=== PATIENT | female | born 1935 | race Caucasian/White ===

== ENCOUNTER 2017-06-05 08:45 | Outpatient (CLI) | payer MEDICARE ==
--- NOTE | 2017-06-05 13:47 | CT ---
CHEST AND ABDOMEN AND PELVIS CT WITH CONTRAST: Date: 06/05/17 COMPARISON: 11/25/16. 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 Patient is undergoing chemotherapy. Previous radiation ther apy. TECHNIQUE: Chest, abdomen, and pelvis CT are performed with IV contrast. Enteric contrast was also administered. Coronal reformatted images submitted for interpretation. FINDINGS: CHEST CT: No mediastinal mass, lymphadenopathy, or hematoma. Heart size is within normal limits. No significant pericardial fluid. Thoracic and abdominal aorta demonstrate atherosclerosis. No aneurysm, dissection , or periaortic fat stranding. Large hiatal hernia is identified. Trachea and central bronchi are patent. There are chronic changes throughout the lung parenchyma. No consolidation, pleural effusion, or pneu mothorax. Stable spiculated nodule in the right lower lobe measuring 1.3 cm (previously measuring 1. 4 cm). [address]: Dilatation of the intra and extrahepatic biliary system due to a surgically absent gallbladder. Liver , spleen, pancreas, and adrenal glands have appropriate enhancement. No gastrohepatic, retrocrural, or periportal lymphadenopathy. There is an enlarged right anterior lymph node measuring 1.1 cm. This lymph node is unchanged from t he previous examination. Additional mesenteric lymph nodes are not appreciated. No evidence of bowel obstruction. Extensive diverticulosis in the sigmoid colon with stable mucosal thickening. No active inflammation. Symmetric enhancement of the kidneys. No obstructive uropathy. Stable hypodensity in the left renal c ortex. Nonobstructing calcifications in the left renal pelvis. PELVIC CT: No mass, lymphadenopathy, free air, or free fluid, Urinary bladder is unremarkable. No lytic or blastic lesions in the osseous structures. IMPRESSION: 1. Stable hiatal hernia. 2. Stable spiculated nodule in the right lower lobe. 3. Stable right anterior mesenteric mass, at the level of the transverse mesocolon. POS: [facility]
[2017-06-05] MEDS ORDERED: Iopamidol 370 76% 100 ML VIAL ONE (14:25)
== END 2017-06-05 08:46 | disposition home or self-care (01) ==
LOC: CT 08:45
PROVIDERS: ATTEND Internal Medicine Medical Oncology
DX: C83.83 Other non-follicular lymphoma, intra-abdominal lymph nodes (principal); K44.9 Diaphragmatic hernia without obstruction or gangrene; R91.8 Other nonspecific abnormal finding of lung field
CPT/HCPCS: 71260; 74177

== ENCOUNTER 2017-07-17 12:50 | Day surgery (SDC) | payer MEDICARE ==
[2017-07-16 17:02] VITALS: BMI 19.5
[2017-07-17] MEDS ORDERED: Lidocaine 1% PF 5 ML VIAL ONE (15:05)
[2017-07-17] MEDS ORDERED: PROPOFOL 200 MG/20 ML VIAL ONE (15:05)
--- NOTE | 2017-07-17 20:02 | OP ---
DATE OF PROCEDURE: 07/17/2017 PROCEDURE: Colonoscopy with biopsy. SURGEON: Alon Gregg M.D. ANESTHESIA: Pain medications given by Anesthesiology Department. PREOPERATIVE DIAGNOSIS: Severe diarrhea, negative stool studies. POSTOPERATIVE DIAGNOSES: 1. Extensive sigmoid diverticulosis with luminal narrowing. 2. Otherwise normal colon exam. PROCEDURE IN DETAIL: A written consent was obtained prior to procedure. After adequate sedation, re ctal exam performed was normal. Endoscope was advanced to the cecum. The quality of the bowel prep was adequate. There are numerous diverticula in the sigmoid colon with luminal narrowing and severe constriction. The mucosa throughout the colon appeared normal. There was no lesion, no polyps seen. Random biopsies were obtained from the ascending, transverse, and sigmoid colon to evaluate for zuleyka roscopic colitis. The rectal vault appeared normal including retroflexion. The patient tolerated th e procedure well. ASSESSMENT: 1. Sigmoid diverticulosis with severe luminal constriction. 2. Otherwise normal colon exam. PLAN: 1. Await biopsy to evaluate for microscopic colitis. 2. Lomotil p.r.n., in the meantime.
== END 2017-07-17 16:30 | disposition home or self-care (01) ==
LOC: SDC 12:50
PROVIDERS: ATTEND Internal Medicine Gastroenterology
PROC: 0DBK8ZX Excision of Ascending Colon, Via Natural or Artificial Opening Endoscopic, Diagnostic (ICD-10-PCS; principal; 2017-07-17)
PROC: 0DBL8ZX Excision of Transverse Colon, Via Natural or Artificial Opening Endoscopic, Diagnostic (ICD-10-PCS; 2017-07-17)
PROC: 0DBN8ZX Excision of Sigmoid Colon, Via Natural or Artificial Opening Endoscopic, Diagnostic (ICD-10-PCS; 2017-07-17)
DX: K52.89 Other specified noninfective gastroenteritis and colitis (principal); K57.30 Diverticulosis of large intestine without perforation or abscess without bleeding; K21.9 Gastro-esophageal reflux disease without esophagitis; C88.4 Extranodal marginal zone B-cell lymphoma of mucosa-associated lymphoid tissue [MALT-lymphoma]; C85.90 Non-Hodgkin lymphoma, unspecified, unspecified site; M19.90 Unspecified osteoarthritis, unspecified site; I25.10 Atherosclerotic heart disease of native coronary artery without angina pectoris; Z87.891 Personal history of nicotine dependence
CPT/HCPCS: 88305; J2001; J2704

== ENCOUNTER 2017-07-20 00:14 | Emergency (ER) | payer MEDICARE ==
[2017-07-20 01:47] LABS: ALT (SGPT) 23 U/L (8-55); AST (SGOT) 32 U/L (5-34); Albumin 3.7 g/dL (3.4-4.8); Alkaline Phosphatase 212 U/L (40-150); Anion Gap 14 mmol/L (10-20); BUN (Urea Nitrogen) 14 mg/dL (9.8-20.1); Bilirubin, Total 0.3 mg/dL (0.2-1.2); Calc. Creatinine Clearance 0 mL/min (70-130); Calcium 8.5 mg/dL (7.8-10.44); Carbon Dioxide 26 mmol/L (23-31); Chloride 105 mmol/L (98-107); Estimated GFR-MDRD 79; Globulin 3.2 g/dL (2.4-3.5); Glucose 110 mg/dL (83-110); Potassium 3.3 mmol/L (3.5-5.1); Protein, Total 6.9 g/dL (6.0-8.3); Sodium 142 mmol/L (136-145)
[2017-07-20 02:02] LABS: Band 4 % (5-11); Eosinophils 2 % (0-10); Hemoglobin 12.3 g/dL (12.0-16.0); Lymphocytes 33 % (21-51); MDiff Complete? YES; Mean Corpuscular HGB CONC 31.5 g/dL (32.0-36.0); Mean Corpuscular Hemoglobin 32.4 pg (27.0-31.0); Mean Platelet Volume 8.3 fL (7.4-10.4); Monocytes 14 % (0-10); Neutrophil 46 % (42-75); PLT Morphology Comment PLT clumps seen-ADEQ; Platelet Clumps MARKED; RBC Distribution Width 13.7 % (11.5-14.5); White Blood Cell (WBC) Count 3.1 thou/uL (4.8-10.8)
[2017-07-20 02:24] LABS: Bilirubin Negative (Negative); Blood, Urine Negative (Negative); Clarity CLEAR (Clear); Glucose, Urine (Dipstick) Negative (Negative); Leukocyte Small (Negative); Nitrite Negative (Negative); Protein, Urine (Dipstick) Negative (Neg-Trace); Specific Gravity, Urine 1.014 (1.002-1.036); Urobilinogen 0.2 mg/dL (0.2-1.0); pH, Urine 6.5 (5.0-9.0)
[2017-07-20 02:25] LABS: Bacteria/HPF Rare-Few HPF (None Seen); Hyaline Casts/LPF 0-3 HYALINE CAST LPF (0-3 Hyaline)
[2017-07-20] MEDS ORDERED: Potassium Chloride 20 MEQ TAB ONE (02:33)
== END 2017-07-20 03:15 | disposition home or self-care (01) ==
LOC: ERS 00:14
DX: R19.7 Diarrhea, unspecified (principal); I10 Essential (primary) hypertension; Z87.891 Personal history of nicotine dependence
CPT/HCPCS: 36415; 80053; 81003; 81015; 82550; 83605; 85025; 87086; 96360

== ENCOUNTER 2017-12-08 09:26 | Outpatient (CLI) | payer MEDICARE ==
[2017-12-08 10:51] LABS: Estimated GFR-MDRD - POC Greater than 90
--- NOTE | 2017-12-08 11:30 | CT ---
CHEST AND ABDOMEN AND PELVIS CT WITH CONTRAST: HISTORY: Right lower lobe lung mass. COMPARISON: 06/05/2017 and 11/25/2016 TECHNIQUE: A chest, abdomen, and pelvis CT is performed with IV contrast. Coronal reformatted images are submit venus for interpretation. FINDINGS: CHEST: No mediastinal mass, lymphadenopathy, or hematoma. Heart size is within normal limits. No p ericardial effusion. The thoracic aorta and abdominal aorta have an overall normal caliber. There i s atherosclerosis. No periaortic fat stranding or dissection. A hiatal hernia is again noted and unchanged. The majority of the stomach is in the posterior medias tinum. The trachea and central bronchi are patent. Minimal scar and atelectasis in the lingula. Minimal at electasis in the right lower lobe. There is an essentially stable, irregularly marginated mass in th e right lower lobe, adjacent to multiple pulmonary vessels, measuring 0.8 x 1.1 cm (previously report ed to be 1.3 cm). The middle lobe and upper lobe are unremarkable. No significant pleural fluid or pneumothorax. ABDOMEN: Dilatation of the biliary system due to reservoir effect from previous cholecystectomy. Th e spleen, pancreas, adrenal glands, and liver have appropriate enhancement. Symmetric enhancement of the kidneys. Bilaterally, no obstructive uropathy. No gastrohepatic, retrocrural, or periportal ly mphadenopathy. There is a stable mass in the anterior right mediastinum, currently measuring 1.1 x 1 .1 cm (previously measuring 1.4 x 1.1 cm). There is no free air, or free fluid. Multiple normal curtis iber small bowel loops. Normal ileocecal junction. Normal appearing colon. Scattered fecal materia l in a nondistended, nondilated colon. Diverticulosis in the sigmoid. No diverticulitis. PELVIS: No mass, lymphadenopathy, free air, or free fluid. Surgically absent uterus. There are no lytic or blastic lesions in the osseous structures. IMPRESSION: 1. Stable hiatal hernia. 2. Stable spiculated nodule in the right lower lobe. 3. Stable anterior right mesenteric mass at the level of the transverse mesocolon. POS: [facility]
[2017-12-08] MEDS ORDERED: Iopamidol 370 76% 100 ML VIAL ONE (14:44)
== END 2017-12-08 09:27 | disposition home or self-care (01) ==
LOC: CT 09:26
PROVIDERS: ATTEND Internal Medicine Medical Oncology
DX: C83.89 Other non-follicular lymphoma, extranodal and solid organ sites (principal); R91.8 Other nonspecific abnormal finding of lung field; R91.1 Solitary pulmonary nodule; K44.9 Diaphragmatic hernia without obstruction or gangrene; R19.09 Other intra-abdominal and pelvic swelling, mass and lump
CPT/HCPCS: 71260; 74177; 82565

== ENCOUNTER 2018-04-02 09:22 | Outpatient (CLI) | payer MEDICARE | END 2018-04-02 09:23 | disposition home or self-care (01) | LOC: EDSTATUS 10:00 | PROVIDERS: ATTEND Internal Medicine Medical Oncology | DX: R63.3 Feeding difficulties (principal); R13.10 Dysphagia, unspecified; C88.4 Extranodal marginal zone B-cell lymphoma of mucosa-associated lymphoid tissue [MALT-lymphoma] | CPT/HCPCS: 74230; G8996-GN-CJ; G8997-GN-CI ==

== ENCOUNTER 2018-05-25 09:09 | Outpatient (CLI) | payer MEDICARE ==
[2018-05-25] MEDS ORDERED: Iopamidol 370 76% 100 ML VIAL ONE (09:56)
--- NOTE | 2018-05-25 12:01 | CT ---
CT CHEST WITH CONTRAST: CT ABDOMEN WITH CONTRAST: CT PELVIS WITH CONTRAST: HISTORY: C83.83, marginal zone lymphoma. COMPARISON: CT chest, abdomen, and pelvis from 12/08/2017. FINDINGS: There is a large sliding hiatal hernia, proximally, through the extent of the gastric volume in the t horax, similar. Mild emphysematous lung changes, central and lobular in nature. Slight interval size decrease, spiculated nodule, right lower lobe, measuring up to 7 mm, previously up to 10 mm. No new suspicious pulmonary nodule. No pleural effusion. No pericardial effusion. Atrophy, left lobe of thyroid, versus prior surgical change. Proximal small bowel mesenteric lymph node measures up to 8 mm in size, previously 11 mm. Cholecystectomy change. Mild reservoir effect of the intrahepatic and extrahepatic biliary system, c hronic, without change. Moderate diverticular disease of the sigmoid colon, without active current i nflammation. No dilated loops of large or small bowel. No retroperitoneal adenopathy. No hydronephrosis. Small, sub-5 mm renal hypodensities are similar. No suspicious osteolytic or osteoblastic lesions. No displaced rib fracture. IMPRESSION: 1. Interval size decrease of the right lower lobe pulmonary nodule, as well as the proximal mesenter ic lymph node, with size as above, indicating a partial treatment response. 2. No evidence for disease progression. No new foci of adenopathy or pulmonary nodules. POS: [facility]
== END 2018-05-25 09:10 | disposition home or self-care (01) ==
LOC: CT 09:09
PROVIDERS: ATTEND Internal Medicine Medical Oncology
DX: C83.00 Small cell B-cell lymphoma, unspecified site (principal); R91.1 Solitary pulmonary nodule; K63.9 Disease of intestine, unspecified
CPT/HCPCS: 71260; 74177; 82565; Q9967

== ENCOUNTER 2018-10-06 12:24 | Outpatient (CLI) | payer MEDICARE ==
--- NOTE | 2018-10-07 11:00 | PET ---
Nuclear medicine FDG PET/CT: (Positron emission tomography and computed tomography) DATE: 10/07/2018 HISTORY: 83-year-old female with marginal zone lymphoma. Follow-up. COMPARISON: 03/04/2016PET/CT and 05/25/2018 CT TECHNIQUE: IV injection of F-18 fluorodeoxyglucose (FDG) dose: 11.2 mCi. PET scan and attenuation correction CT performed from skull base to proximal thighs. FINDINGS: SUV (standard uptake values) numbers given are maximum SUVs. QCLR used. The hypermetabolic right lower lobe pulmonary nodule demonstrated on 03/04/2016, is smaller than it w as before, and is currently not hypermetabolic, SUV 0.7. It is unchanged compared to 05/25/2018 CT. The lungs are otherwise grossly clear now. No hypermetabolic mediastinal, hilar, axillary, or subpectoral, lymph nodes, with interval resolution of the hypermetabolic bilateral axillary and subpectoral lymph nodes of 03/04/2016. Currently no hypermetabolic suspicious activity in the chest. Previously, at the C1-2 level, right longus colli/longus capitis muscle had hypermetabolic activity o f 3.5.. It currently has SUV of 2.9. This is probably muscle contraction activity rather than hypermetabolic retropharyngeal lymph node. Otherwise, no abnormal, suspicious hypermetabolic activity in the neck. Herniation of greater than half of the stomach into the thoracic cavity again noted. No suspicious hypermetabolic activity in the pancreas, adrenals, liver, spleen, retroperitoneal lymph nodes, or any mesenteric mass. No hypermetabolic activity in any iliac chain lymph nodes or inguinal lymph nodes. The previously hyp ermetabolic left inguinal lymph nodes of 03/04/2016, have resolved. IMPRESSION: 1) no evidence of malignant hypermetabolic activity anywhere. 2) large paraesophageal hiatal hernia. 3) small right lower lobe pulmonary nodule is currently not hypermetabolic, smaller than in 6, and stable since 05/25/2018.
== END 2018-10-06 12:25 | disposition home or self-care (01) ==
LOC: PET 12:24
PROVIDERS: ATTEND Internal Medicine Medical Oncology
DX: C88.4 Extranodal marginal zone B-cell lymphoma of mucosa-associated lymphoid tissue [MALT-lymphoma] (principal); K44.9 Diaphragmatic hernia without obstruction or gangrene; R91.1 Solitary pulmonary nodule
CPT/HCPCS: 78815; A9552

== ENCOUNTER 2019-01-03 08:20 | Outpatient (CLI) | payer MEDICARE ==
--- NOTE | 2019-01-03 11:39 | BD ---
DEXA BONE DENSITY STUDY Date: 01/03/19 HISTORY: Osteoporosis screening. FINDINGS: Lumbar Spine: BMD (g/cm2) L1 0.868 T-Score: -1.1 Z-Score: 1.3 L2 0.861 T-Score: -1.5 Z-Score: 1.2 L3 0.863 T-Score: -2.0 Z-Score: 0.9 L4 0.818 T-Score: -2.2 Z-Score: 0.8 L1-L4 0.852 T-Score: -1.8 Z-Score: 1.0 Left Femoral Neck: 0.533 T-Score: -2.9 Z-Score: -0.4 Total Femur: 0.702 T-Score: -2.0 Z-Score: 0.2 WHO Classification: Osteoporosis. The is a comparison from 2017 and the femoral neck bone mineral density has increased 5.5%, which is statistically significant. IMPRESSION: Osteoporosis with elevated fracture risk. Bone mineral density of femoral neck has increased from the comparison exam. POS: [facility]
== END 2019-01-03 08:21 | disposition home or self-care (01) ==
LOC: BICMAMMO 08:20
PROVIDERS: ATTEND Internal Medicine Medical Oncology
DX: Z13.820 Encounter for screening for osteoporosis (principal); M81.0 Age-related osteoporosis without current pathological fracture
CPT/HCPCS: 77080

== ENCOUNTER 2019-09-20 10:14 | Outpatient (CLI) | payer MEDICARE ==
[~2019-09-20 10:14] MED LIST: Iopamidol-370 76% 500 ML 1 ML ONE
--- NOTE | 2019-09-20 11:41 | CT ---
CT CHEST WITH IV CONTRAST CT ABDOMEN WITH IV CONTRAST CT PELVIS WITH IV CONTRAST: HISTORY: Marginal zone lymphoma. COMPARISON: 05/25/2018. FINDINGS: No mediastinal, hilar, or axillary mass or lymphadenopathy is seen. The 7-8 mm spiculated nodule in the right lower lobe (best seen on the coronal reconstructions) is stable. No new suspicious nodules are seen. There has been interval development of small bilateral pleural effusions. No pericardial effusion is noted. The large sliding hiatal hernia with inclusion of a large portion of the stomach is again seen. Changes of cholecystectomy are again noted. The liver, spleen, pancreas, adrenal glands, and kidneys are stable. Mild reservoir effect of the biliary ducts is stable as well. The small bowel loops ar e not abnormally dilated. Colonic diverticulosis is again seen. No free air, free fluid, or lymphadenopathy is seen in the abdomen or pelvis. There are vascular calcifications without evidence of aneurysmal dilatation of the thoracoabdominal a heather. There are degenerative changes in the thoracolumbar spine. No suspicious osteolytic or osteob lastic lesions are seen. IMPRESSION: Interval development of small bilateral pleural effusions since 05/25/2018. POS: [facility]
== END 2019-09-20 10:15 | disposition home or self-care (01) ==
LOC: BICCT 10:14
PROVIDERS: ATTEND Internal Medicine Medical Oncology
DX: C85.90 Non-Hodgkin lymphoma, unspecified, unspecified site (principal); R91.1 Solitary pulmonary nodule; R59.0 Localized enlarged lymph nodes; J90 Pleural effusion, not elsewhere classified
CPT/HCPCS: 71260; 74177; Q9967

== ENCOUNTER 2019-11-25 13:30 | Outpatient (CLI) | payer MEDICARE ==
--- NOTE | 2019-11-25 14:02 | RAD ---
CHEST 2 VIEWS: Date: 11/25/2019 HISTORY: Bilateral pleural effusions. FINDINGS: Left ICD. Minimal cardiomegaly. Right-sided subclavian catheter and injection port. Moderate to large hiatal hernia. Borderline cardiomegaly. Some abnormal opacification over the right lower chest which has a somewhat rounded appearance on the PA radiograph, but appears to represent fluid within the in ferior aspect of the right major fissure as seen on the lateral view. There is some bilateral hyperin flation. There appear to be two vertebral bodies which demonstrate some vertical height loss, one in the mid thoracic spine and the other at the thoracolumbar junction, which are probably stable from pr ior exam. The costophrenic angles appear sharp. IMPRESSION: 1. Evidence for pleural effusion in the inferior aspect of the right major fissure. 2. Mild bilateral vascular congestion with cardiomegaly. 3. Moderate size hiatal hernia. 4. Other findings as above. POS: [facility]
== END 2019-11-25 13:31 | disposition home or self-care (01) ==
LOC: BICRAD 13:30
PROVIDERS: ATTEND Internal Medicine Medical Oncology
DX: J90 Pleural effusion, not elsewhere classified (principal); K44.9 Diaphragmatic hernia without obstruction or gangrene; I51.7 Cardiomegaly; R09.89 Other specified symptoms and signs involving the circulatory and respiratory systems; R91.8 Other nonspecific abnormal finding of lung field; Z95.810 Presence of automatic (implantable) cardiac defibrillator
CPT/HCPCS: 71046

== ENCOUNTER 2020-03-15 14:19 | Outpatient (CLI) | payer MEDICARE ==
--- NOTE | 2020-03-15 16:14 | BD ---
Exam: DEXA Bone Density 03/15/20 HISTORY: Postmenopausal. 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 POS: [facility]
--- NOTE | 2020-03-15 16:44 | RAD ---
EXAM: CHEST TWO VIEWS: 03/15/20 HISTORY: Follow-up bilateral pleural effusions. FINDINGS: Left transvenous pacemaker. Right central line and injection port. Minimal stable increased markings bilaterally. Borderline sized heart. Evidence for hiatal hernia. Small amount of fluid in the right m ajor fissure improved from prior study. IMPRESSION: No significant acute process. Stable increased markings bilaterally and stable pleural fluid in the r ight major fissure. Hiatal hernia appears stable. No significant new process. POS: [facility]
== END 2020-03-15 14:20 | disposition home or self-care (01) ==
LOC: BICMAMMO 14:19
PROVIDERS: ATTEND Internal Medicine Medical Oncology
DX: M81.0 Age-related osteoporosis without current pathological fracture (principal); C83.83 Other non-follicular lymphoma, intra-abdominal lymph nodes; J90 Pleural effusion, not elsewhere classified; D46.4 Refractory anemia, unspecified; R91.8 Other nonspecific abnormal finding of lung field; M85.88 Other specified disorders of bone density and structure, other site
CPT/HCPCS: 71046; 77080

== ENCOUNTER 2020-05-02 17:41 | Inpatient (IN) | payer MEDICARE ==
[2020-05-02 18:39] LABS: #Eosinphils 0.1 thou/uL (0.0-0.7); #Lymphocytes 1.3 thou/uL (1.20-3.40); #Monocytes 0.8 thou/uL (0.11-0.59); #Neutrophils 9.2 thou/uL (1.40-6.50); %Basophils 0.2 % (0.0-1.0); %Eosinophils 0.6 % (0.0-10.0); %Lymphocytes 11.3 % (21.0-51.0); %Monocytes 6.7 % (0.0-10.0); %Neutrophils 81.1 % (42.0-75.0); Hemoglobin 13.3 g/dL (12.0-16.0); Mean Corpuscular HGB CONC 31.8 g/dL (32.0-36.0); Mean Corpuscular Hemoglobin 33.5 pg (27.0-31.0); Mean Platelet Volume 11.2 fL (7.4-10.4); Platelet Count 120 thou/uL (130-400); RBC Distribution Width 12.8 % (11.5-14.5); Red Blood Cell (RBC) Count 3.99 mill/uL (4.20-5.40); White Blood Cell (WBC) Count 11.4 thou/uL (4.8-10.8)
[2020-05-02 18:56] LABS: Large Platelets SLIGHT; MDiff Complete? YES; Macrocytosis SLIGHT = 6-15 cells (100X) (0-5/hpf); Platelet Morphology Comment Appears Decreased
[2020-05-02 19:02] LABS: ALT (SGPT) 11 U/L (8-55); AST (SGOT) 21 U/L (5-34); Albumin 4.1 g/dL (3.4-4.8); Alkaline Phosphatase 60 U/L (40-110); Anion Gap 14 mmol/L (10-20); BUN (Urea Nitrogen) 17 mg/dL (9.8-20.1); Bilirubin, Total 0.6 mg/dL (0.2-1.2); Calc. Creatinine Clearance 0 mL/min (70-130); Calcium 9.5 mg/dL (7.8-10.44); Carbon Dioxide 30 mmol/L (23-31); Chloride 100 mmol/L (98-107); Globulin 2.7 g/dL (2.4-3.5); Glucose 109 mg/dL (83-110); Potassium 3.8 mmol/L (3.5-5.1); Protein, Total 6.8 g/dL (5.8-8.1); Sodium 140 mmol/L (136-145)
[2020-05-02] MEDS ORDERED: Dextrose 50% Abboject 50 ML SYRINGE SLOW IVP PRN (20:36)
[2020-05-02] MEDS ORDERED: hydrALAZINE 20 MG/ML VIAL SLOW IVP PRN (20:36)
[2020-05-02] MEDS ORDERED: Dextrose 5% in Water 1,000 ML IV PRN (20:36)
[2020-05-02] MEDS ORDERED: Ondansetron ODT 4 MG TAB PO PRN (20:36)
[2020-05-02] MEDS ORDERED: Ondansetron PF 4 MG/2 ML Vial IVP PRN (20:36)
[2020-05-02] MEDS ORDERED: Morphine 2 MG/ML VIAL SLOW IVP PRN (20:36)
[2020-05-02] MEDS ORDERED: traMADol HCl 50 MG TAB PO PRN (20:42)
[2020-05-02] MEDS ORDERED: Cyclobenzaprine 10 MG TAB PO PRN (20:42)
[2020-05-02] MEDS ORDERED: Sodium Chloride 0.9% 1,000 ML IV SCH (20:45)
[2020-05-02] MEDS ORDERED: Fentanyl 100 MCG/2 ML VIAL ONE (20:51)
[2020-05-02 20:57] LABS: Magnesium 1.8 mg/dL (1.6-2.6)
[2020-05-02] MEDS ORDERED: hydrALAZINE 20 MG/ML VIAL ONE (21:13)
[2020-05-02] MEDS: Ketorolac Tromethamine 30 MG/ML VIAL IVP SCH (22:14)
[2020-05-02] MEDS: traMADol HCl 50 MG TAB PO SCH (22:15)
[2020-05-02] MEDS: Acetaminophen 500 MG TAB PO SCH (22:16)
[2020-05-02] MEDS: Famotidine 20 MG TAB PO SCH (22:16)
[2020-05-02] MEDS ORDERED: Magnesium 2 GM/50 ML 2 GM in Premix Bag 1 BAG IVPB SCH (23:00)
[2020-05-02] MEDS ORDERED: Potassium Chloride 20 MEQ in Premix Bag 1 BAG IVPB SCH (23:00)
[2020-05-02 23:17] VITALS: BMI 19.5
[2020-05-03 03:25] LABS: SARS-CoV-2 PCR by NAA Not Detected (NotDetected)
[2020-05-03] MEDS: traMADol HCl 50 MG TAB PO SCH ×4 (03:53→21:31)
[2020-05-03] MEDS: Acetaminophen 500 MG TAB PO SCH ×4 (03:53→21:09)
[2020-05-03] MEDS: Ketorolac Tromethamine 30 MG/ML VIAL IVP SCH ×4 (05:02→23:07)
[2020-05-03 05:59] LABS: #Lymphocytes 1.2 thou/uL (1.20-3.40); #Monocytes 0.8 thou/uL (0.11-0.59); #Neutrophils 7.3 thou/uL (1.40-6.50); %Basophils 0.3 % (0.0-1.0); %Eosinophils 0.2 % (0.0-10.0); %Lymphocytes 12.7 % (21.0-51.0); %Monocytes 8.1 % (0.0-10.0); %Neutrophils 78.7 % (42.0-75.0); Hemoglobin 11.5 g/dL (12.0-16.0); Mean Corpuscular Hemoglobin 33.4 pg (27.0-31.0); Mean Platelet Volume 11.5 fL (7.4-10.4); Platelet Count 88 thou/uL (130-400); RBC Distribution Width 12.8 % (11.5-14.5); Red Blood Cell (RBC) Count 3.45 mill/uL (4.20-5.40); White Blood Cell (WBC) Count 9.3 thou/uL (4.8-10.8)
[2020-05-03 06:22] LABS: Anion Gap 10 mmol/L (10-20); BUN (Urea Nitrogen) 16 mg/dL (9.8-20.1); Calc. Creatinine Clearance 48 mL/min (70-130); Calcium 8.7 mg/dL (7.8-10.44); Carbon Dioxide 28 mmol/L (23-31); Chloride 101 mmol/L (98-107); Glucose 103 mg/dL (83-110); Magnesium 2.6 mg/dL (1.6-2.6); Phosphorus 4.5 mg/dL (2.3-4.7); Potassium 4.4 mmol/L (3.5-5.1); Sodium 135 mmol/L (136-145)
[2020-05-03] MEDS: Famotidine 20 MG TAB PO SCH ×2 (07:29→20:33)
[2020-05-03] MEDS: Amlodipine 10 MG TAB PO SCH (08:42)
[2020-05-03] MEDS ORDERED: PROPOFOL 200 MG/20 ML VIAL ONE (08:50)
[2020-05-03] MEDS ORDERED: PHENYLEPHRINE-NS 100 MCG/ML 10 ML SYRINGE ONE (08:50)
[2020-05-03] MEDS ORDERED: Lidocaine 1% PF 5 ML VIAL ONE (08:50)
[2020-05-03] MEDS ORDERED: Dexamethasone 20 MG/5 ML VIAL ONE (08:50)
[2020-05-03] MEDS ORDERED: Rocuronium Bromide 10 MG/ML (10ML VIAL) ONE (08:50)
[2020-05-03] MEDS ORDERED: Ondansetron PF 4 MG/2 ML Vial ONE (08:50)
[2020-05-03] MEDS ORDERED: Losartan/Hydrochlorothiazide 100 mg/25 mg Tablet PO SCH (09:00)
[2020-05-03] MEDS ORDERED: CEFAZOLIN 2 GM in Premix Bag 1 BAG IVPB SCH (12:00)
[2020-05-03] MEDS ORDERED: Lidocaine 2% Jelly 5 ML TUBE ONE (12:55)
[2020-05-03] MEDS ORDERED: Fentanyl 100 MCG/2 ML VIAL ONE (12:55)
[2020-05-03] MEDS ORDERED: SUGAMMADEX SODIUM 200 MG/2 ML VIAL ONE (14:10)
[2020-05-03] MEDS ORDERED: Promethazine HCl 25 MG/ML VIAL SLOW IVP PRN (14:38)
[2020-05-03] MEDS ORDERED: Ondansetron HCl/PF 4 MG/2 ML Vial IVP PRN (14:38)
[2020-05-03] MEDS ORDERED: Promethazine HCl 25 MG/ML VIAL IM PRN (14:38)
[2020-05-03 17:23] LABS: Bacteria/HPF 3+ HPF (None Seen); Bilirubin Negative (Negative); Blood, Urine Negative (Negative); Clarity Clear (Clear); Glucose, Urine (Dipstick) Normal (Negative); Ketone, Urine Negative (Negative); Leukocyte 500 Leu/uL (Negative); Nitrite 2+ (Negative); Protein, Urine (Dipstick) 10 mg/dL (Neg-Trace); Specific Gravity, Urine 1.016 (1.002-1.036); Squamous Epithelial 0-3 HPF (0-3); Urobilinogen Normal mg/dL (Less than 2); WBC/HPF 21-50 HPF (0-3)
[2020-05-03] MEDS: CEFAZOLIN 2 GM in Premix Bag 1 BAG IVPB SCH (20:33)
[2020-05-03] MEDS: Ciprofloxacin 500 MG TAB PO SCH (20:33)
[2020-05-03] MEDS ORDERED: Ibuprofen 800 MG TAB PO PRN (20:42)
[2020-05-04] MEDS: Acetaminophen 500 MG TAB PO SCH ×4 (04:56→21:05)
[2020-05-04] MEDS: CEFAZOLIN 2 GM in Premix Bag 1 BAG IVPB SCH (04:57)
[2020-05-04] MEDS: Ciprofloxacin 500 MG TAB PO SCH ×2 (05:00→20:33)
[2020-05-04 06:00] LABS: #Lymphocytes 0.7 thou/uL (1.20-3.40); #Monocytes 0.7 thou/uL (0.11-0.59); #Neutrophils 7.9 thou/uL (1.40-6.50); %Basophils 0.3 % (0.0-1.0); %Eosinophils 0.4 % (0.0-10.0); %Lymphocytes 7.3 % (21.0-51.0); %Monocytes 7.4 % (0.0-10.0); %Neutrophils 84.7 % (42.0-75.0); Mean Corpuscular HGB CONC 31.9 g/dL (32.0-36.0); Mean Corpuscular Hemoglobin 34.1 pg (27.0-31.0); Mean Platelet Volume 10.8 fL (7.4-10.4); Platelet Count 95 thou/uL (130-400); RBC Distribution Width 12.8 % (11.5-14.5); Red Blood Cell (RBC) Count 2.92 mill/uL (4.20-5.40); White Blood Cell (WBC) Count 9.3 thou/uL (4.8-10.8)
[2020-05-04 06:11] LABS: Anion Gap 12 mmol/L (10-20); BUN (Urea Nitrogen) 25 mg/dL (9.8-20.1); Calc. Creatinine Clearance 44 mL/min (70-130); Calcium 8.2 mg/dL (7.8-10.44); Carbon Dioxide 27 mmol/L (23-31); Chloride 103 mmol/L (98-107); Glucose 116 mg/dL (83-110); Phosphorus 4.3 mg/dL (2.3-4.7); Potassium 3.8 mmol/L (3.5-5.1); Sodium 138 mmol/L (136-145)
[2020-05-04] MEDS ORDERED: Sulfameth/Trimethoprim DS 800-160mg TAB PO SCH (09:00)
[2020-05-04] MEDS: PARoxetine 20 MG TAB PO SCH (09:40)
[2020-05-04] MEDS: Ezetimibe 10 MG TAB PO SCH (09:40)
[2020-05-04] MEDS: Losartan/Hydrochlorothiazide 100 mg/25 mg Tablet PO SCH (09:40)
[2020-05-04] MEDS: Aspirin 81 mg Enteric Coated Tablet PO SCH ×2 (09:40→20:33)
[2020-05-04] MEDS: Amlodipine 10 MG TAB PO SCH (09:40)
[2020-05-04] MEDS: Fenofibrate Nanocrystallized 145 MG TAB PO SCH (10:45)
[2020-05-04] MEDS: Senokot S 8.6-50 MG TAB PO SCH (20:33)
[2020-05-04] MEDS ORDERED: Ibuprofen 200 MG TAB PO PRN (23:52)
[2020-05-04] MEDS ORDERED: cefTRIAXone\\ROCEPHIN 1 GM in Sodium Chloride 0.9% 100 ML IVPB SCH (23:59)
[2020-05-05] MEDS ORDERED: cefTRIAXone\\ROCEPHIN 1 GM VIAL IM SCH (00:30)
[2020-05-05] MEDS: Acetaminophen 500 MG TAB PO SCH ×5 (03:38→21:17)
[2020-05-05 05:48] LABS: Anion Gap 14 mmol/L (10-20); BUN (Urea Nitrogen) 16 mg/dL (9.8-20.1); Carbon Dioxide 25 mmol/L (23-31); Chloride 103 mmol/L (98-107); Potassium 3.6 mmol/L (3.5-5.1); Sodium 138 mmol/L (136-145)
[2020-05-05 05:49] LABS: Calc. Creatinine Clearance 55 mL/min (70-130); Calcium 8.2 mg/dL (7.8-10.44); Glucose 93 mg/dL (83-110); Magnesium 1.8 mg/dL (1.6-2.6); Phosphorus 3.3 mg/dL (2.3-4.7)
[2020-05-05] MEDS: Losartan/Hydrochlorothiazide 100 mg/25 mg Tablet PO SCH (09:17)
[2020-05-05] MEDS: Polyethylene Glycol 3350 17 GM Packet PO SCH (09:17)
[2020-05-05] MEDS: Senokot S 8.6-50 MG TAB PO SCH ×2 (09:17→21:18)
[2020-05-05] MEDS: Aspirin 81 mg Enteric Coated Tablet PO SCH ×2 (09:17→21:18)
[2020-05-05] MEDS: Ezetimibe 10 MG TAB PO SCH (09:17)
[2020-05-05] MEDS: Fenofibrate Nanocrystallized 145 MG TAB PO SCH (09:17)
[2020-05-05] MEDS: Amlodipine 10 MG TAB PO SCH (09:18)
[2020-05-05] MEDS: PARoxetine 20 MG TAB PO SCH (09:18)
[2020-05-05] MEDS: Magnesium Oxide 400 MG TAB PO SCH ×2 (09:20→21:17)
[2020-05-05] MEDS: Sulfameth/Trimethoprim DS 800-160mg TAB PO SCH ×2 (09:21→21:18)
[2020-05-05 10:58] LABS: #Eosinphils 0.1 thou/uL (0.0-0.7); #Lymphocytes 0.8 thou/uL (1.20-3.40); #Monocytes 0.7 thou/uL (0.11-0.59); %Eosinophils 1.3 % (0.0-10.0); %Lymphocytes 10.3 % (21.0-51.0); %Monocytes 8.6 % (0.0-10.0); %Neutrophils 79.9 % (42.0-75.0); Hemoglobin 9.7 g/dL (12.0-16.0); Mean Corpuscular HGB CONC 32.3 g/dL (32.0-36.0); Mean Corpuscular Hemoglobin 34.1 pg (27.0-31.0); Mean Platelet Volume 10.9 fL (7.4-10.4); Platelet Count 92 thou/uL (130-400); RBC Distribution Width 12.8 % (11.5-14.5); Red Blood Cell (RBC) Count 2.83 mill/uL (4.20-5.40); White Blood Cell (WBC) Count 7.6 thou/uL (4.8-10.8)
[2020-05-06] MEDS: Acetaminophen 500 MG TAB PO SCH ×3 (05:05→15:14)
[2020-05-06 07:47] LABS: #Eosinphils 0.1 thou/uL (0.0-0.7); #Lymphocytes 0.9 thou/uL (1.20-3.40); #Monocytes 0.7 thou/uL (0.11-0.59); #Neutrophils 5.2 thou/uL (1.40-6.50); %Basophils 0.2 % (0.0-1.0); %Eosinophils 1.9 % (0.0-10.0); %Lymphocytes 12.3 % (21.0-51.0); %Monocytes 10.3 % (0.0-10.0); %Neutrophils 75.2 % (42.0-75.0); Hemoglobin 9.8 g/dL (12.0-16.0); Mean Corpuscular HGB CONC 32.1 g/dL (32.0-36.0); Mean Corpuscular Hemoglobin 33.8 pg (27.0-31.0); Mean Platelet Volume 11.1 fL (7.4-10.4); Platelet Count 80 thou/uL (130-400); RBC Distribution Width 12.8 % (11.5-14.5); White Blood Cell (WBC) Count 6.9 thou/uL (4.8-10.8)
[2020-05-06] MEDS: Ezetimibe 10 MG TAB PO SCH (09:06)
[2020-05-06] MEDS: PARoxetine 20 MG TAB PO SCH (09:06)
[2020-05-06] MEDS: Senokot S 8.6-50 MG TAB PO SCH (09:06)
[2020-05-06] MEDS: Aspirin 81 mg Enteric Coated Tablet PO SCH (09:06)
[2020-05-06] MEDS: Polyethylene Glycol 3350 17 GM Packet PO SCH (09:06)
[2020-05-06] MEDS: Magnesium Oxide 400 MG TAB PO SCH (09:07)
[2020-05-06] MEDS: Fenofibrate Nanocrystallized 145 MG TAB PO SCH (09:07)
[2020-05-06] MEDS: Amlodipine 10 MG TAB PO SCH (09:07)
[2020-05-06] MEDS: Sulfameth/Trimethoprim DS 800-160mg TAB PO SCH (09:08)
[2020-05-06] MEDS: Losartan/Hydrochlorothiazide 100 mg/25 mg Tablet PO SCH (09:08)
[2020-05-06 15:41] VITALS: BP 132/67; TEMP 98
== END 2020-05-06 16:37 | DRG 481 ==
LOC: ERS 17:41 → SURG A 20:00
PROVIDERS: ADMIT Surgery; ATTEND Surgery
PROC: 0QS604Z Reposition Right Upper Femur with Internal Fixation Device, Open Approach (ICD-10-PCS; principal; 2020-05-03)
DX: S72.141A Displaced intertrochanteric fracture of right femur, initial encounter for closed fracture (principal); N39.0 Urinary tract infection, site not specified; F05 Delirium due to known physiological condition; Z20.822 Contact with and (suspected) exposure to COVID-19; W01.0XXA Fall on same level from slipping, tripping and stumbling without subsequent striking against object, initial encounter; I25.10 Atherosclerotic heart disease of native coronary artery without angina pectoris; I10 Essential (primary) hypertension; Z96.652 Presence of left artificial knee joint; M81.0 Age-related osteoporosis without current pathological fracture; I34.0 Nonrheumatic mitral (valve) insufficiency; I51.7 Cardiomegaly; B96.89 Other specified bacterial agents as the cause of diseases classified elsewhere; Z95.0 Presence of cardiac pacemaker; Z85.72 Personal history of non-Hodgkin lymphomas; Z87.891 Personal history of nicotine dependence; Z90.49 Acquired absence of other specified parts of digestive tract; Z79.899 Other long term (current) drug therapy; Z79.82 Long term (current) use of aspirin; Z86.73 Personal history of transient ischemic attack (TIA), and cerebral infarction without residual deficits; Y92.000 Kitchen of unspecified non-institutional (private) residence as the place of occurrence of the external cause
CPT/HCPCS: 36415; 36416; 70450; 71045; 72125; 72170; 76000; 80048; 80053; 81001; 83735; 84100; 85025; 86850; 86900; 86901; 87077; 87086; 87186; 87635; 93005; 96374; 96375; C1713; C1769; J0360; J0690; J0696; J1100; J1885; J2405; J2704; J3010; J3475; J3480; U0003; U0005

== ENCOUNTER 2020-12-16 09:10 | Observation (INO) | payer MEDICARE ==
[2020-12-16 10:15] LABS: ALT (SGPT) 20 U/L (8-55); AST (SGOT) 34 U/L (5-34); Albumin 3.7 g/dL (3.4-4.8); Alkaline Phosphatase 42 U/L (40-110); Anion Gap 13 mmol/L (10-20); BUN (Urea Nitrogen) 16 mg/dL (9.8-20.1); Bilirubin, Total 0.8 mg/dL (0.2-1.2); Calc. Creatinine Clearance 0 mL/min (70-130); Calcium 9.4 mg/dL (7.8-10.44); Carbon Dioxide 28 mmol/L (23-31); Chloride 102 mmol/L (98-107); Globulin 2.6 g/dL (2.4-3.5); Glucose 103 mg/dL (83-110); Potassium 3.6 mmol/L (3.5-5.1); Protein, Total 6.3 g/dL (5.8-8.1); Sodium 139 mmol/L (136-145)
[2020-12-16] MEDS ORDERED: Ondansetron PF 4 MG/2 ML Vial ONE (10:18)
[2020-12-16] MEDS ORDERED: Morphine 2 MG/ML VIAL ONE (10:18)
[2020-12-16 11:02] LABS: #Basophils 0.1 thou/uL (0.0-0.2); #Eosinphils 0.1 thou/uL (0.0-0.7); #Lymphocytes 1.4 thou/uL (1.20-3.40); #Monocytes 0.4 thou/uL (0.11-0.59); #Neutrophils 5.8 thou/uL (1.40-6.50); %Basophils 1.3 % (0.0-1.0); %Eosinophils 1.1 % (0.0-10.0); %Lymphocytes 18.3 % (21.0-51.0); %Monocytes 4.7 % (0.0-10.0); %Neutrophils 74.5 % (42.0-75.0); Hemoglobin 13.3 g/dL (12.0-16.0); MDiff Complete? YES; Mean Corpuscular Hemoglobin 31.7 pg (27.0-31.0); Mean Corpuscular Volume 98.9 fL (78.0-98.0); Mean Platelet Volume 10.5 fL (7.4-10.4); Platelet Clumps SLIGHT; Platelet Count 125 thou/uL (130-400); Platelet Morphology Comment Appears Adequate; RBC Distribution Width 14.4 % (11.5-14.5); Red Blood Cell (RBC) Count 4.21 mill/uL (4.20-5.40); White Blood Cell (WBC) Count 7.8 thou/uL (4.8-10.8)
[2020-12-16 11:17] LABS: Bacteria/HPF None Seen HPF (None Seen); Bilirubin Negative (Negative); Blood, Urine Negative (Negative); Clarity Clear (Clear); Glucose, Urine (Dipstick) Normal (Negative); Ketone, Urine Negative (Negative); Leukocyte 250 Leu/uL (Negative); Nitrite Negative (Negative); Protein, Urine (Dipstick) Negative (Neg-Trace); RBC/HPF 0-3 HPF (0-3); Squamous Epithelial 0-3 HPF (0-3); Urobilinogen Normal mg/dL (Less than 2); WBC/HPF 21-50 HPF (0-3); pH, Urine 7.5 (5.0-9.0)
[2020-12-16] MEDS ORDERED: Acetaminophen 325 MG TAB PO PRN (12:00)
[2020-12-16] MEDS ORDERED: Electrolyte Replacement Protocol 1 EACH FS SCH (12:00)
[2020-12-16] MEDS ORDERED: Ondansetron ODT 4 MG TAB PO PRN (12:00)
[2020-12-16] MEDS ORDERED: Ondansetron PF 4 MG/2 ML Vial IVP PRN (12:00)
[2020-12-16 12:17] LABS: Magnesium 1.5 mg/dL (1.6-2.6); Phosphorus 2.7 mg/dL (2.3-4.7)
[2020-12-16] MEDS ORDERED: Aspirin Chewable 81 MG TAB ONE (12:19)
[2020-12-16] MEDS ORDERED: Magnesium Sulfate 4 GM in Sodium Chloride 0.9% 250 ML 250 ML IVPB SCH (12:30)
[2020-12-16 13:24] LABS: Troponin I 0.043 ng/mL (< 0.028)
[2020-12-16] MEDS ORDERED: Electrolyte Replacement Protocol FS PRN (13:45)
[2020-12-16] MEDS ORDERED: Ergocalciferol 1.25 MG(50,000 UNITS) CAP PO SCH (13:45)
[2020-12-16] MEDS ORDERED: cefTRIAXone\\ROCEPHIN 2 GM VIAL ONE (14:16)
[2020-12-16] MEDS ORDERED: Cyanocobalamin 1000 MCG/ML VIAL IM SCH (15:00)
[2020-12-16 17:05] VITALS: BMI 18.4
[2020-12-16 17:21] LABS: Troponin I 0.027 ng/mL (< 0.028)
[2020-12-16] MEDS: Cyanocobalamin (Vitamin B-12) 1,000 MCG TAB PO SCH (20:02)
[2020-12-16] MEDS: Nitrofurantoin Monohyd/M-Cryst 100 MG CAP PO SCH (20:02)
[2020-12-17] MEDS: Acetaminophen 325 MG TAB PO PRN ×3 (03:33→22:47)
[2020-12-17 06:05] LABS: Magnesium 2.2 mg/dL (1.6-2.6)
[2020-12-17] MEDS ORDERED: Magnesium 2 GM/50 ML 2 GM in Premix Bag 1 BAG IVPB SCH (06:15)
[2020-12-17] MEDS: Cholecalciferol 1,000 UNITS (25 MCG) TAB PO SCH (08:24)
[2020-12-17] MEDS: Nitrofurantoin Monohyd/M-Cryst 100 MG CAP PO SCH ×2 (08:24→19:46)
[2020-12-17 13:45] LABS: SARS-CoV-2 PCR by NAA Not Detected (NotDetected)
[2020-12-17] MEDS: Cyanocobalamin (Vitamin B-12) 1,000 MCG TAB PO SCH (19:46)
[2020-12-18] MEDS: Acetaminophen 325 MG TAB PO PRN (04:33)
[2020-12-18 04:47] LABS: #Eosinphils 0.5 thou/uL (0.0-0.7); #Lymphocytes 1.7 thou/uL (1.20-3.40); #Monocytes 0.3 thou/uL (0.11-0.59); #Neutrophils 3.9 thou/uL (1.40-6.50); %Basophils 0.7 % (0.0-1.0); %Eosinophils 7.1 % (0.0-10.0); %Lymphocytes 26.1 % (21.0-51.0); %Monocytes 5.3 % (0.0-10.0); %Neutrophils 60.8 % (42.0-75.0); Mean Corpuscular HGB CONC 31.7 g/dL (32.0-36.0); Mean Corpuscular Hemoglobin 31.7 pg (27.0-31.0); Mean Platelet Volume 10.1 fL (7.4-10.4); Platelet Count 138 thou/uL (130-400); RBC Distribution Width 14.2 % (11.5-14.5); White Blood Cell (WBC) Count 6.3 thou/uL (4.8-10.8)
[2020-12-18 04:53] LABS: Anion Gap 12 mmol/L (10-20); BUN (Urea Nitrogen) 19 mg/dL (9.8-20.1); Calc. Creatinine Clearance 40 mL/min (70-130); Calcium 9.1 mg/dL (7.8-10.44); Carbon Dioxide 28 mmol/L (23-31); Chloride 104 mmol/L (98-107); Glucose 85 mg/dL (83-110); Sodium 140 mmol/L (136-145)
[2020-12-18 07:53] VITALS: BP 200/89; TEMP 97.8
[2020-12-18] MEDS: Nitrofurantoin Monohyd/M-Cryst 100 MG CAP PO SCH (08:34)
[2020-12-18] MEDS: Cholecalciferol 1,000 UNITS (25 MCG) TAB PO SCH (08:35)
== END 2020-12-18 11:50 | disposition home health service (06) ==
LOC: ERS 09:10 → 2NO 12:07
PROVIDERS: ADMIT Internal Medicine; ATTEND Internal Medicine
DX: R55 Syncope and collapse (principal); R53.1 Weakness; R42 Dizziness and giddiness; M84.451A Pathological fracture, right femur, initial encounter for fracture; M84.454A Pathological fracture, pelvis, initial encounter for fracture; K44.9 Diaphragmatic hernia without obstruction or gangrene; M81.0 Age-related osteoporosis without current pathological fracture; Z20.822 Contact with and (suspected) exposure to COVID-19; I10 Essential (primary) hypertension; E78.5 Hyperlipidemia, unspecified; K21.9 Gastro-esophageal reflux disease without esophagitis; I48.91 Unspecified atrial fibrillation; N30.00 Acute cystitis without hematuria; F03.90 Unspecified dementia, unspecified severity, without behavioral disturbance, psychotic disturbance, mood disturbance, and anxiety; Z79.82 Long term (current) use of aspirin; Z79.899 Other long term (current) drug therapy; Z91.81 History of falling; Z95.0 Presence of cardiac pacemaker; Z87.891 Personal history of nicotine dependence; Y92.017 Garden or yard in single-family (private) house as the place of occurrence of the external cause; W18.30XA Fall on same level, unspecified, initial encounter
CPT/HCPCS: 70450; 71045; 72125; 72131; 72170; 73502; 80048; 80053; 82306; 82533; 82553; 83735 ×2; 84100; 84484 ×2; 85025 ×2; 93005; 96372; 96375; 96376; 97116; 97139 ×3; G0378 ×4; J2270; U0003; U0005; 36415; 81003; 81015; J0696; J2405; J3420; J3475; J7050

== ENCOUNTER 2021-03-01 10:47 | Observation (INO) | payer MEDICARE ==
[2021-03-01 11:45] LABS: INR-International Normal Ratio 1.1; Prothrombin Time 13.9 sec (12.0-14.7)
[2021-03-01 11:55] LABS: Hemoglobin 10.5 g/dL (12.0-16.0); Mean Corpuscular Hemoglobin 33.2 pg (27.0-31.0); RBC Distribution Width 13.7 % (11.5-14.5); Red Blood Cell (RBC) Count 3.16 mill/uL (4.20-5.40)
[2021-03-01 12:08] LABS: ALT (SGPT) 28 U/L (8-55); AST (SGOT) 47 U/L (5-34); Alkaline Phosphatase 74 U/L (40-110); Anion Gap 14 mmol/L (10-20); BUN (Urea Nitrogen) 26 mg/dL (9.8-20.1); Calc. Creatinine Clearance 0 mL/min (70-130); Calcium 10.3 mg/dL (7.8-10.44); Carbon Dioxide 26 mmol/L (23-31); Chloride 99 mmol/L (98-107); Globulin 3.1 g/dL (2.4-3.5); Glucose 101 mg/dL (83-110); Potassium 4.3 mmol/L (3.5-5.1); Protein, Total 6.1 g/dL (5.8-8.1); Sodium 135 mmol/L (136-145)
[2021-03-01 12:16] LABS: CKMB 0.5 ng/mL (0-6.6); Lymphocytes 13 % (21-51); MDiff Complete? YES; Mean Platelet Volume 8.7 fL (7.4-10.4); Monocytes 15 % (0-10); Neutrophil 72 % (42-75); Platelet Count 411 thou/uL (130-400); Platelet Morphology Comment Appears Increased; White Blood Cell (WBC) Count 13.1 thou/uL (4.8-10.8)
[2021-03-01 12:22] LABS: Bacteria/HPF 1+ HPF (None Seen); Bilirubin Negative (Negative); Blood, Urine 1+ (Negative); Clarity Turbid (Clear); Glucose, Urine (Dipstick) Normal (Negative); Ketone, Urine Negative (Negative); Leukocyte 500 Leu/uL (Negative); Nitrite 2+ (Negative); Protein, Urine (Dipstick) 20 mg/dL (Neg-Trace); Squamous Epithelial 0-3 HPF (0-3); WBC/HPF Greater than 50 HPF (0-3)
[2021-03-01] MEDS ORDERED: cefTRIAXone\\ROCEPHIN 2 GM VIAL ONE (12:46)
[2021-03-01 15:50] LABS: SARS-CoV-2 NAA Rapid Test Not Detected (NotDetected)
[2021-03-01] MEDS ORDERED: Sodium Chloride 0.9% 1,000 ML IV SCH (16:45)
[2021-03-01] MEDS ORDERED: Ondansetron PF 4 MG/2 ML Vial IVP PRN (16:47)
[2021-03-01] MEDS ORDERED: Bisacodyl 10 MG SUPP PR PRN (16:47)
[2021-03-01] MEDS ORDERED: Acetaminophen 325 MG TAB PO PRN (16:47)
[2021-03-01] MEDS ORDERED: Acetaminophen 650 MG Suppository PR PRN (16:47)
[2021-03-01] MEDS ORDERED: Ondansetron ODT 4 MG TAB PO PRN (16:47)
[2021-03-01] MEDS ORDERED: Lorazepam 2 MG/ML VIAL SLOW IVP PRN (16:49)
[2021-03-01] MEDS ORDERED: Morphine 4 MG/ML VIAL SLOW IVP PRN (16:56)
[2021-03-01 17:04] VITALS: BMI 15.9
[2021-03-01 18:07] LABS: Troponin I 0.027 ng/mL (< 0.028)
[2021-03-01 20:38] LABS: Troponin I 0.034 ng/mL (< 0.028)
[2021-03-02 07:14] LABS: Hemoglobin 9.9 g/dL (12.0-16.0); Mean Corpuscular HGB CONC 31.5 g/dL (32.0-36.0); Mean Platelet Volume 8.9 fL (7.4-10.4); Platelet Count 326 thou/uL (130-400); RBC Distribution Width 13.9 % (11.5-14.5); Red Blood Cell (RBC) Count 3.08 mill/uL (4.20-5.40); White Blood Cell (WBC) Count 10.3 thou/uL (4.8-10.8)
[2021-03-02 07:17] VITALS: BP 159/53; TEMP 98.6
[2021-03-02 07:54] LABS: Band 15 % (5-11); Lymphocytes 8 % (21-51); MDiff Complete? YES; Monocytes 8 % (0-10); Neutrophil 69 % (42-75); Platelet Morphology Comment Appears Adequate
[2021-03-02 07:58] LABS: Anion Gap 15 mmol/L (10-20); BUN (Urea Nitrogen) 28 mg/dL (9.8-20.1); Calc. Creatinine Clearance 47 mL/min (70-130); Calcium 9.6 mg/dL (7.8-10.44); Carbon Dioxide 23 mmol/L (23-31); Chloride 103 mmol/L (98-107); Glucose 81 mg/dL (83-110); Sodium 137 mmol/L (136-145)
[2021-03-02] MEDS ORDERED: cefTRIAXone\\ROCEPHIN 1 GM in Sodium Chloride 0.9% 100 ML IVPB SCH (12:00)
== END 2021-03-02 10:32 | disposition hospice, inpatient (51) ==
LOC: ERS 10:47 → T4-B 14:31
PROVIDERS: ADMIT Internal Medicine; ATTEND Internal Medicine
DX: A41.9 Sepsis, unspecified organism (principal); N39.0 Urinary tract infection, site not specified; C88.4 Extranodal marginal zone B-cell lymphoma of mucosa-associated lymphoid tissue [MALT-lymphoma]; F03.91 Unspecified dementia, unspecified severity, with behavioral disturbance; I13.2 Hypertensive heart and chronic kidney disease with heart failure and with stage 5 chronic kidney disease, or end stage renal disease; N18.9 Chronic kidney disease, unspecified; E78.5 Hyperlipidemia, unspecified; I48.0 Paroxysmal atrial fibrillation; R77.8 Other specified abnormalities of plasma proteins; R53.1 Weakness; I25.10 Atherosclerotic heart disease of native coronary artery without angina pectoris; K21.9 Gastro-esophageal reflux disease without esophagitis; R29.6 Repeated falls; M81.0 Age-related osteoporosis without current pathological fracture; Z66 Do not resuscitate; Z86.73 Personal history of transient ischemic attack (TIA), and cerebral infarction without residual deficits; Z87.891 Personal history of nicotine dependence; Z95.0 Presence of cardiac pacemaker; Z20.822 Contact with and (suspected) exposure to COVID-19
CPT/HCPCS: 51701; 70450; 71045; 80048; 80053; 82553; 84484 ×2; 85025 ×2; 85610; 85730; 87077; 87086; 87186; 93005; 94760; 96365; 99285; U0002; 36415; 81003; 81015; 96375; G0378; J0696; J2270; J7050

== ENCOUNTER 2021-03-02 11:02 | Inpatient (IN) | payer OTHER ==
[2021-03-02] MEDS ORDERED: Senokot S 8.6-50 MG TAB PO PRN (11:21)
[2021-03-02] MEDS ORDERED: Acetaminophen 650 MG Suppository PR PRN (18:00)
[2021-03-02] MEDS: Morphine 4 MG/ML VIAL SLOW IVP PRN (19:15)
[2021-03-02 19:37] VITALS: BMI 16.5
[2021-03-03] MEDS: Morphine 4 MG/ML VIAL SLOW IVP PRN (11:18)
[2021-03-03] MEDS: Lorazepam 2 MG/ML VIAL SLOW IVP PRN (14:12)
[2021-03-04] MEDS: Lorazepam 2 MG/ML VIAL SLOW IVP PRN ×3 (05:38→17:39)
[2021-03-04] MEDS: Morphine 4 MG/ML VIAL SLOW IVP PRN (05:38)
[2021-03-04] MEDS: Morphine 4 MG/ML VIAL SLOW IVP SCH ×7 (10:42→23:59)
[2021-03-05] MEDS: Morphine 4 MG/ML VIAL SLOW IVP SCH ×12 (02:31→23:11)
[2021-03-05] MEDS: Lorazepam 2 MG/ML VIAL SLOW IVP PRN ×3 (02:38→10:41)
[2021-03-05] MEDS: Lorazepam 2 MG/ML VIAL SLOW IVP SCH ×4 (10:54→23:05)
[2021-03-06] MEDS: Morphine 4 MG/ML VIAL SLOW IVP SCH ×12 (00:27→22:42)
[2021-03-06] MEDS: Lorazepam 2 MG/ML VIAL SLOW IVP SCH ×6 (03:11→22:42)
[2021-03-06] MEDS: Hyoscyamine Sulfate SL 0.125 mg Tablet SL PRN ×2 (06:11→10:38)
[2021-03-06] MEDS ORDERED: Scopolamine 1.5 mg/72 hour Patch TOP PRN (11:42)
[2021-03-07] MEDS: Lorazepam 2 MG/ML VIAL SLOW IVP PRN ×2 (00:46→04:43)
[2021-03-07] MEDS: Morphine 4 MG/ML VIAL SLOW IVP SCH ×6 (00:46→10:25)
[2021-03-07] MEDS: Lorazepam 2 MG/ML VIAL SLOW IVP SCH ×3 (02:44→10:26)
[2021-03-07 08:06] VITALS: BP 80/49; TEMP 104.7
== END 2021-03-07 10:39 | disposition expired | DRG 951 ==
LOC: T4-B 11:02
PROVIDERS: ADMIT Family Medicine; ATTEND Family Medicine
DX: Z51.5 Encounter for palliative care (principal); A41.9 Sepsis, unspecified organism; R65.20 Severe sepsis without septic shock; N39.0 Urinary tract infection, site not specified; C88.4 Extranodal marginal zone B-cell lymphoma of mucosa-associated lymphoid tissue [MALT-lymphoma]; Z66 Do not resuscitate; Z20.822 Contact with and (suspected) exposure to COVID-19; F03.90 Unspecified dementia, unspecified severity, without behavioral disturbance, psychotic disturbance, mood disturbance, and anxiety; E78.5 Hyperlipidemia, unspecified; I48.0 Paroxysmal atrial fibrillation; N18.9 Chronic kidney disease, unspecified; I12.9 Hypertensive chronic kidney disease with stage 1 through stage 4 chronic kidney disease, or unspecified chronic kidney disease; K21.9 Gastro-esophageal reflux disease without esophagitis; R29.6 Repeated falls; Z95.0 Presence of cardiac pacemaker; Z79.82 Long term (current) use of aspirin; Z79.899 Other long term (current) drug therapy
CPT/HCPCS: J2060; J2270